=== PATIENT | female | born 1975 | race Two or more races ===

== ENCOUNTER 2020-05-11 16:20 | Outpatient (REF) | payer OTHER, SELFPAY | END 2020-05-11 16:21 | disposition home or self-care (01) | LOC: HO.LAB 16:20 | PROVIDERS: PCP Internal Medicine; Visit Provider Internal Medicine | DX: Z20.828 Contact with and (suspected) exposure to other viral communicable diseases (principal) | CPT/HCPCS: U0003 ==

== ENCOUNTER 2020-05-22 15:37 | Outpatient (REF) | payer OTHER, SELFPAY | END 2020-05-22 15:38 | disposition home or self-care (01) | LOC: HO.LAB 15:37 | PROVIDERS: Visit Provider Internal Medicine | DX: Z20.828 Contact with and (suspected) exposure to other viral communicable diseases (principal) | CPT/HCPCS: C9803; U0003 ==

== ENCOUNTER 2020-06-16 10:22 | Outpatient (REF) | payer OTHER, SELFPAY | END 2020-06-16 10:23 | disposition home or self-care (01) | LOC: HO.LAB 10:22 | PROVIDERS: Visit Provider Internal Medicine | DX: Z20.828 Contact with and (suspected) exposure to other viral communicable diseases (principal) | CPT/HCPCS: C9803; U0003 ==

== ENCOUNTER 2021-05-07 12:15 | Outpatient (REF) | payer OTHER, SELFPAY ==
[2021-05-07 12:46] LABS: COVID-19 Test Negative (Negative)
== END 2021-05-07 12:16 | disposition home or self-care (01) ==
LOC: HO.LAB 12:15
PROVIDERS: PCP Internal Medicine; Visit Provider Internal Medicine
DX: Z20.822 Contact with and (suspected) exposure to COVID-19 (principal)
CPT/HCPCS: 36415; 87635; C9803